=== PATIENT | male | born 1950 | race Caucasian/White ===

== ENCOUNTER 2021-05-01 08:53 | Outpatient (CLI) | payer OTHER, SELFPAY ==
--- NOTE | 2021-05-01 09:15 | USCV_ITS ---
Timi Angel Age: 70 Gender: M : 1950 Exam Date: 05/01/2021 09:30 Ordering Phys: Eunice Valenzuela MD ([email or web address]) Technologist: Madhavi Allen Exam Location: [facility] [place] Indication: Dyspnea BP: 120 / 75 HR: 51 Rhythm: Sinus Technical Quality: Adequate MEASUREMENTS (Male / Female) Normal Values 2D ECHO LV Diastolic Diameter PLAX 4.7 cm 4.2 - 5.9 / 3.9 - 5.3 cm LV Systolic Diameter PLAX 2.8 cm IVS Diastolic Thickness 0.8 cm 0.6 - 1.0 / 0.6 - 0.9 cm IVS Systolic Thickness 1.6 cm LVPW Diastolic Thickness 0.9 cm 0.6 - 1.0 / 0.6 - 0.9 cm LVPW Systolic Thickness 1.4 cm RV Chamber Size 3.0 cm LVOT Diameter 2.0 cm LV Ejection Fraction 2D Teich 72.6 % LV Ejection Fraction MOD 2C 66.4 % LV Ejection Fraction 2C AL 66.4 % LA Diameter 3.1 cm LA Width 2.9 cm LA Height 4.4 cm RA Width 3.4 cm RA Height 4.2 cm Aorta at Sinotubular Diameter 2.3 cm M-MODE Aortic Annulus Diameter 3.6 cm LA Ao Ratio MM 0.8 MV E Point Septal Separation 1.0 cm DOPPLER AV Peak Velocity 103.0 cm/s LVOT Peak Velocity 97.0 cm/s AV Area Cont Eq vti 2.6 cm squared AV Area Cont Eq pk 3.0 cm squared MV Area PHT 3.0 cm squared Mitral E to A Ratio 1.1 MV E' Velocity 35.5 cm/s Mitral E to MV E' Ratio 8.1 Mitral E to LV E' Lateral Ratio 7.1 Mitral E to LV E' Septal Ratio 9.5 TR Peak Velocity 276.0 cm/s TR Peak Gradient 30.5 mmHg TV Peak E Velocity 56.0 cm/s RV Acceleration Time 0.2 s RV Ejection Time 0.4 s RV AcT/ET 0.4 FINDINGS Left Ventricle Normal left ventricular size and systolic function, EF 66 %. No regional wall motion abnormalities. Right Ventricle The right ventricle is normal in size and function. Right Atrium The right atrium is normal in size. Left Atrium The left atrium is normal in size. Mitral Valve No gross abnormalities noted Aortic Valve Appears to be tricuspid with no gross abnormalities Tricuspid Valve No gross abnormalities noted Pulmonic Valve Pulmonic valve not well visualized. Pericardium Normal pericardium without effusion. Aorta Normal ascending aorta dimension. CONCLUSIONS Normal left ventricular size and systolic function, EF 66 %. No regional wall motion abnormalities. The aortic valve appears to be tricuspid with no gross abnormalities Normal cardiac chamber sizes. No significant valvular abnormalities are noted. There is no pericardial effusion. There are no intracardiac masses. No previous study is available for comparison. Dr Eunice Valenzuela MD FACC (Electronically Signed) Final Date: 01 May 2021 19:53 S
== END 2021-05-01 08:54 | disposition home or self-care (01) ==
PROVIDERS: PCP Nurse Practitioner; Visit Provider Internal Medicine Cardiovascular Disease
DX: R06.00 Dyspnea, unspecified (principal); R00.2 Palpitations
CPT/HCPCS: 93306

== ENCOUNTER → 2021-05-31 10:08 | Outpatient (BNVA) | payer OTHER, SELFPAY | PROVIDERS: PCP Nurse Practitioner; Visit Provider Internal Medicine Cardiovascular Disease | DX: I49.3 Ventricular premature depolarization (principal); R53.83 Other fatigue; R55 Syncope and collapse; E78.5 Hyperlipidemia, unspecified; I10 Essential (primary) hypertension; Z87.891 Personal history of nicotine dependence | CPT/HCPCS: 99214 ==

== ENCOUNTER 2021-07-12 08:22 | Outpatient (CLI) | payer OTHER, MEDICARE, SELFPAY ==
[2021-07-12 08:57] VITALS: BMI 27.0
--- NOTE | 2021-07-12 09:04 | ECG_ITS ---
[facility] Test Date: 2021-07-12 Pat Name: Timi Angel Department: Room: Gender: Male Surg Nurse: : 1950 Requested By: Eunice Valenzuela Order Number: [id number] Josias MD: Eunice Valenzuela M.D. Interpretive Statements NAME OF STUDY: EXERCISE SESTAMIBI STRESS TEST INDICATION: Fatigue; Ventricular Arrhythmia PROCEDURE: The baseline electrocardiogram showed normal sinus rhythm with normal ST-Ts right bundle branch block pattern. Frequent PVCs in the form of isolated beats and bigeminy's. At the baseline, the patient's blood pressure was 134/91 mm Hg with a heart rate of 80. The patient exercised for 9 minutes on a standard Segun protocol. Patient attained a maximum heart rate of 137 beats per minute( 91 % of the maximum predicted heart rate) with a blood pressure at the peak exercise of 187/83 mm Hg. The EKG at the peak exercise revealed no significant changes. Patient did not have any chest pain or any significant arrhythmis with the exercise Sestamibi was injected 1 minute prior to the peak exercise During the recovery phase, there were no new changes. Patient was complaining of some shortness of breath with the peak exercise Blood pressure at the end of the recovery phase was 128/88 mm Hg with a heart rate of 89 per minute. CONCLUSION: 1. No significant EKG changes with the [treadmill exercise 2. No exercise-induced chest pain or cardiac arrhythmia 3. Fair exercise tolerance, attained a maximum of 10.2 METs 4. Sestamibi/Sestamibi perfusion results pending; see separate report. Electronically Signed On 07-14-2021 13:20:05 CDT by Eunice Valenzuela M.D. [email or web address]
--- NOTE | 2021-07-12 09:05 | NMCV_ITS ---
NM burton perf SPECT r/s* [id number] Timi Angel Age: 70 Gender: M : 1950 Exam Date: 07/12/2021 09:45 Ordering Phys: Eunice Valenzuela MD ([email or web address]) Technologist: EDIS Whelan Exam Location: [facility] Indications: SHORTNESS OF BREATH, FATIGUE STRESS TEST Please see separate stress test report in [facility] for full findings IMAGE PROTOCOL Rest/Stress 1 Exercise Day Radiopharmaceutical Dose (mCi) Administration Site Administered by Rest: Tc-99m 10.6 IV EDIS Love Sestamibi Stress:Tc-99m 32.8 IV EDIS Whelan Sestamilucius Rest: 12-Jul-2021 60 Discovery 630 Stress: 12-Jul-2021 15 Discovery 630 Radiopharmaceutical was injected at 89 % maximum heart rate. Images obtained in supine and prone position. SPECT RESULTS Technical Quality: Excellent Raw Data Analysis: Normal Image Corrections: No attenuation or motion correction applied Summed Stress Score: 0 Summed Rest Score: 1 Summed Difference Score: 0 PERFUSION FINDINGS A small area of decreased tracer uptake was noted in the mid and apical inferior wall region, with no significant reversibility. FUNCTIONAL RESULTS (calculated via Gated SPECT) Stress Image LV EF (%): 67 Stress EDV (mL):105 TID: 0.82 Stress ESV (mL):35 FUNCTIONAL FINDINGS: Segmental wall motion analysis revealing no gross wall motion abnormalities IMPRESSIONS 1. Myocardial perfusion imaging revealing a small area of persistent decreased tracer uptake in the inferior wall region most likely represent attenuation artifacts. 2. Normal ejection fraction of 67%. 3. LV wall motion analysis revealing no gross wall motion abnormalities. 4. Normal LV volume Low probability for coronary ischemia, based on the above findings Dr Eunice Valenzuela MD FAC (Electronically Signed) Final Date: 12 July 2021 12:58 S
[2021-07-12 10:48] VITALS: BP 145/84; PULSE 83
== END 2021-07-12 08:23 | disposition home or self-care (01) ==
LOC: CDL 08:24
PROVIDERS: PCP Nurse Practitioner; Visit Provider Internal Medicine Cardiovascular Disease
DX: R53.83 Other fatigue (principal); I49.9 Cardiac arrhythmia, unspecified
CPT/HCPCS: 78452; 93017; A9500

== ENCOUNTER → 2021-10-04 10:58 | Outpatient (BNVA) | payer OTHER, SELFPAY | PROVIDERS: PCP Nurse Practitioner; Visit Provider Internal Medicine Cardiovascular Disease | DX: R07.89 Other chest pain (principal); R53.83 Other fatigue; I49.8 Other specified cardiac arrhythmias; E78.5 Hyperlipidemia, unspecified; I10 Essential (primary) hypertension; E04.9 Nontoxic goiter, unspecified; Z87.891 Personal history of nicotine dependence; I45.2 Bifascicular block; I49.3 Ventricular premature depolarization | CPT/HCPCS: 36415; 80053; 84443; 85025; 86141; 99214 ==

== ENCOUNTER → 2022-04-09 09:23 | Outpatient (BNVA) | payer OTHER, SELFPAY | PROVIDERS: PCP Nurse Practitioner; Visit Provider Internal Medicine Cardiovascular Disease | DX: I49.8 Other specified cardiac arrhythmias (principal); E78.5 Hyperlipidemia, unspecified; I10 Essential (primary) hypertension; I49.3 Ventricular premature depolarization; Z87.891 Personal history of nicotine dependence | CPT/HCPCS: 99214 ==

== ENCOUNTER → 2022-09-19 09:25 | Outpatient (BNVA) | payer OTHER, SELFPAY | PROVIDERS: PCP Nurse Practitioner; Visit Provider Internal Medicine Pulmonary Disease | DX: J44.9 Chronic obstructive pulmonary disease, unspecified (principal); G47.33 Obstructive sleep apnea (adult) (pediatric); M25.641 Stiffness of right hand, not elsewhere classified; M25.642 Stiffness of left hand, not elsewhere classified; T78.40XA Allergy, unspecified, initial encounter; X58.XXXA Exposure to other specified factors, initial encounter | CPT/HCPCS: 36415; 85651; 86140; 86160; 86162; 86200; 86235; 86255; 86376; 86431 ==

== ENCOUNTER → 2022-09-19 09:25 | Outpatient (BNVA) | payer OTHER, SELFPAY | PROVIDERS: PCP Nurse Practitioner; Visit Provider Internal Medicine Pulmonary Disease | DX: J44.9 Chronic obstructive pulmonary disease, unspecified (principal); G47.33 Obstructive sleep apnea (adult) (pediatric); M25.641 Stiffness of right hand, not elsewhere classified; M25.642 Stiffness of left hand, not elsewhere classified; Z87.891 Personal history of nicotine dependence | CPT/HCPCS: 99204 ==

== ENCOUNTER 2022-10-04 15:01 | Outpatient (CLI) | payer OTHER, SELFPAY ==
--- NOTE | 2022-10-04 15:30 | CT_ITS ---
WS: [id number] CT chest wo con [id number] HISTORY: Possible foreign body. TECHNIQUE: Axial imaging performed through the thorax. Coronal and sagittal reformats are submitted. All CT scans at [facility] use at least one of these dose optimization techniques: automated exposure control; mA and/or kV adjustment per patient size (includes targeted exams where dose is mat ched to clinical indication); or iterative reconstruction. CONTRAST: None DLP: 334.13 mGy.cm COMPARISON: Chest radiograph 08/22/2022 Lungs and central airway: Well aerated lungs. No mass or nodule. Perifissural nodule along the RIGHT minor fissure measures 6 mm. No evidence for pneumonitis. No bronchial tree foreign body. Pleura: Normal. No pleural effusion. Heart and pericardium: Normal size heart with no pericardial effusion. Mediastinum and frank: No mediastinum or hilar adenopathy. Vessels: Mild atherosclerosis aorta. Normal sized pulmonary artery. Minimal scattered calcifications in the coronary arteries. Chest wall and lower neck: No soft tissue masses. Upper abdomen: Small hiatal hernia. No adrenal mass. Osseous structures: Moderate degenerative disc disease at T6-7. IMPRESSION: 1. No foreign body identified within the lungs or visualized bronchial tree. 2. No adenopathy or pneumonia. 3. Mild atherosclerosis aorta.
== END 2022-10-04 15:02 | disposition home or self-care (01) ==
PROVIDERS: PCP Nurse Practitioner; Visit Provider Internal Medicine Pulmonary Disease
DX: J44.9 Chronic obstructive pulmonary disease, unspecified (principal); Z03.822 Encounter for observation for suspected aspirated (inhaled) foreign body ruled out; I70.0 Atherosclerosis of aorta
CPT/HCPCS: 71250

== ENCOUNTER 2022-10-10 10:46 | Outpatient (CLI) | payer OTHER, SELFPAY | END 2022-10-10 10:47 | disposition home or self-care (01) | PROVIDERS: PCP Nurse Practitioner; Visit Provider Internal Medicine Pulmonary Disease | DX: J44.9 Chronic obstructive pulmonary disease, unspecified (principal) | CPT/HCPCS: 36415; 85651; 86140; 86160; 86162; 86200; 86235; 86255; 86376; 86431; 94010; 94618; 94726; 94729 ==

== ENCOUNTER → 2022-10-24 10:10 | Outpatient (BNVA) | payer OTHER, SELFPAY | PROVIDERS: PCP Nurse Practitioner; Visit Provider Nurse Practitioner Family | DX: L81.4 Other melanin hyperpigmentation (principal); D22.5 Melanocytic nevi of trunk; L85.3 Xerosis cutis; L57.8 Other skin changes due to chronic exposure to nonionizing radiation; L57.0 Actinic keratosis; Z85.828 Personal history of other malignant neoplasm of skin; Z87.891 Personal history of nicotine dependence | CPT/HCPCS: 17000; 99213 ==

== ENCOUNTER → 2022-10-29 10:04 | Outpatient (BNVA) | payer OTHER, SELFPAY | PROVIDERS: PCP Nurse Practitioner; Visit Provider Internal Medicine Cardiovascular Disease | DX: R07.9 Chest pain, unspecified (principal); J44.9 Chronic obstructive pulmonary disease, unspecified; I49.8 Other specified cardiac arrhythmias; E03.9 Hypothyroidism, unspecified; E78.5 Hyperlipidemia, unspecified; I10 Essential (primary) hypertension; Z87.891 Personal history of nicotine dependence | CPT/HCPCS: 99214 ==

== ENCOUNTER → 2022-11-23 10:07 | Outpatient (BNVA) | payer OTHER, SELFPAY | PROVIDERS: PCP Nurse Practitioner; Visit Provider Internal Medicine Pulmonary Disease | DX: J44.9 Chronic obstructive pulmonary disease, unspecified (principal); G47.33 Obstructive sleep apnea (adult) (pediatric); M25.641 Stiffness of right hand, not elsewhere classified; M25.642 Stiffness of left hand, not elsewhere classified; Z99.89 Dependence on other enabling machines and devices; Z87.891 Personal history of nicotine dependence; J45.991 Cough variant asthma | CPT/HCPCS: 99214 ==

== ENCOUNTER → 2023-02-19 12:02 | Outpatient (BNVA) | payer OTHER, SELFPAY | PROVIDERS: PCP Nurse Practitioner; Visit Provider Internal Medicine Rheumatology | DX: Z79.899 Other long term (current) drug therapy (principal); Z11.59 Encounter for screening for other viral diseases; Z11.1 Encounter for screening for respiratory tuberculosis; M19.042 Primary osteoarthritis, left hand; M19.071 Primary osteoarthritis, right ankle and foot | CPT/HCPCS: 20610; 73130; 73630; 80076; 82565; 85025; 86140; 86480; 86704; 86803; 87340; 99204; J1030 ==

== ENCOUNTER 2023-03-22 10:12 | Outpatient (CLI) | payer OTHER, SELFPAY ==
[2023-03-22 10:30] LABS: Basophils # 0.1 10^3/uL (0.0-0.1); Basophils % 0.7 %; Eosinophils # 0.2 10^3/uL (0.0-0.8); Eosinophils % 2.9 %; Hematocrit 45.1 % (37-53); Lymphocytes # 1.4 10^3/uL (0.8-4.8); Lymphocytes % 19.9 %; Mean Corpuscular HGB Conc 32.8 g/dL (30-55); Mean Corpuscular Hemoglobin 29.8 pg (27-33); Mean Corpuscular Volume 90.7 fl (82-101); Mean Platelet Volume 10.6 fL (7.4-10.4); Monocytes # 0.6 10^3/uL (0.2-0.9); Monocytes % 7.8 %; Neutrophils # 4.88 10^3/uL (1.8-7.7); Neutrophils % 67.9 %; Nucleated Red Blood Cells % 0 %; Platelet Count 206 10^3/cmm (157-399); Red Blood Count 4.97 10^6/uL (3.85-5.65); Red Cell Distribution Width 13.7 % (12.1-15.1); White Blood Count 7.19 10^3/uL (3.29-11.43)
[2023-03-22 10:49] LABS: Alanine Aminotransferase 16 U/L (0-41); Albumin Level 4.2 g/dL (3.5-5.2); Alkaline Phosphatase 98 U/L (40-130); Aspartate Amino Transferase 18 U/L (0-40); Globulin 2.7 g/dL (1.3-4.6); Total Bilirubin 0.4 mg/dL (0.15-1.2); Total Protein 6.9 g/dL (6.6-8.7)
== END 2023-03-22 10:13 | disposition home or self-care (01) ==
LOC: LAB 10:13
PROVIDERS: PCP Nurse Practitioner; Visit Provider Internal Medicine Rheumatology
DX: Z79.899 Other long term (current) drug therapy (principal); M19.90 Unspecified osteoarthritis, unspecified site
CPT/HCPCS: 36415; 80076; 82565; 85025; 86140

== ENCOUNTER → 2023-05-21 10:12 | Outpatient (BNVA) | payer OTHER, SELFPAY | PROVIDERS: PCP Nurse Practitioner; Visit Provider Nurse Practitioner Family | DX: I10 Essential (primary) hypertension (principal); Z87.891 Personal history of nicotine dependence | CPT/HCPCS: 99213 ==

== ENCOUNTER → 2023-05-24 08:36 | Outpatient (BNVA) | payer OTHER, SELFPAY | PROVIDERS: PCP Nurse Practitioner; Visit Provider Internal Medicine Pulmonary Disease | DX: G47.33 Obstructive sleep apnea (adult) (pediatric) (principal); J44.9 Chronic obstructive pulmonary disease, unspecified; M25.641 Stiffness of right hand, not elsewhere classified; M25.642 Stiffness of left hand, not elsewhere classified; R09.82 Postnasal drip; Z87.891 Personal history of nicotine dependence | CPT/HCPCS: 99214 ==

== ENCOUNTER → 2023-06-04 10:04 | Outpatient (BNVA) | payer OTHER, SELFPAY | PROVIDERS: PCP Nurse Practitioner; Visit Provider Internal Medicine Rheumatology | DX: Z79.899 Other long term (current) drug therapy (principal); M25.641 Stiffness of right hand, not elsewhere classified; M25.642 Stiffness of left hand, not elsewhere classified; M11.20 Other chondrocalcinosis, unspecified site; M54.31 Sciatica, right side | CPT/HCPCS: 99214 ==

== ENCOUNTER → 2023-10-25 10:09 | Outpatient (BNVA) | payer OTHER, SELFPAY | PROVIDERS: PCP Nurse Practitioner; Visit Provider Nurse Practitioner Family | DX: L57.0 Actinic keratosis (principal); D17.0 Benign lipomatous neoplasm of skin and subcutaneous tissue of head, face and neck; D22.5 Melanocytic nevi of trunk; L81.4 Other melanin hyperpigmentation; L57.8 Other skin changes due to chronic exposure to nonionizing radiation; L85.3 Xerosis cutis; L82.0 Inflamed seborrheic keratosis; Z85.828 Personal history of other malignant neoplasm of skin | CPT/HCPCS: 17000; 17110; 99213 ==

== ENCOUNTER → 2023-11-05 09:21 | Outpatient (BNVA) | payer OTHER, SELFPAY | PROVIDERS: PCP Nurse Practitioner; Referring Provider Nurse Practitioner; Visit Provider Student in an Organized Health Care Education/Training Program | DX: Z12.11 Encounter for screening for malignant neoplasm of colon (principal) | CPT/HCPCS: 99204 ==

== ENCOUNTER → 2024-02-24 09:47 | Outpatient (BNVA) | payer MEDICARE, SELFPAY | PROVIDERS: PCP Nurse Practitioner; Visit Provider Internal Medicine Cardiovascular Disease | DX: I10 Essential (primary) hypertension (principal); R94.39 Abnormal result of other cardiovascular function study; I49.8 Other specified cardiac arrhythmias; E03.9 Hypothyroidism, unspecified; E78.5 Hyperlipidemia, unspecified; J44.89 Other specified chronic obstructive pulmonary disease; Z87.891 Personal history of nicotine dependence | CPT/HCPCS: 99214 ==

== ENCOUNTER 2024-03-30 08:06 | Outpatient (CLI) | payer OTHER, SELFPAY ==
--- NOTE | 2024-03-30 08:13 | FL_ITS ---
WS: [id number] Exam: FL barium swallow [id number] Date/Time of Exam: 03/30/2024 8:43 AM Reason For Exam: DYSPHAGIA Fluoroscopy time: 1min [id number] minutes # of spot films: 4 There is mild posterior extrinsic compression of the cervical esophagus at the C5-6 level which appears to be secondary to anterior osteophyte formation and ligamentous thickening. No intrinsic esophageal mass or stricture was noted. Oral pharyngeal phase of swallowing was normal. The esophagus is otherwise smooth in contour with normal motility. No hiatal hernia or gastroesophageal reflux identified. The esophagus was not displaced. FL/FL barium swallow [id number] IMPRESSION: 1. Mild posterior extrinsic compression of the cervical esophagus at C5-6 which is likely due to anterior osteophyte formation and probable ligamentous thicke cindy. 2. No intrinsic esophageal mass or stricture identified.
== END 2024-03-30 08:07 | disposition home or self-care (01) ==
LOC: RAD 08:06
PROVIDERS: PCP Nurse Practitioner; Visit Provider Otolaryngology
DX: R09.A2 Foreign body sensation, throat (principal); K22.2 Esophageal obstruction; R93.89 Abnormal findings on diagnostic imaging of other specified body structures
CPT/HCPCS: 74220

== ENCOUNTER → 2024-04-06 08:30 | Outpatient (BNVA) | payer OTHER, SELFPAY | PROVIDERS: PCP Nurse Practitioner; Visit Provider Student in an Organized Health Care Education/Training Program | DX: K57.92 Diverticulitis of intestine, part unspecified, without perforation or abscess without bleeding (principal) | CPT/HCPCS: 99204 ==

== ENCOUNTER 2024-04-16 11:59 | Outpatient (CLI) | payer OTHER, SELFPAY ==
--- NOTE | 2024-04-16 12:04 | CT_ITS ---
WS: [id number] CT neck w con* [id number] REASON FOR EXAM: FOREIGN BODY SENSATION IN THROAT IV CONTRAST ADMINISTERED: 100 mL of Omnipaque 350. TOTAL EXAM DLP: 184.[address] scans at [facility] use at least one of these dose optimization techniques: automated exposure control; mA and/or kV adjustment per patient size (includes targeted exams where dose is matched to clinical indication); or iterative reconstruction. FINDINGS: Normal thyroid. Normal parotid glands and submaxillary salivary glands. Normal airway with normal vocal cords. No neck mass or adenopathy. Degenerative spondylosis C5-C7 with anterior osteophyte ptosis and mild ligamentous hypertrophy which would appear to account for the findings on the barium swallow of 03/30/2024. CT/CT neck w con* [id number] IMPRESSION: No neck mass. Findings on the previous barium swallow likely due to degenerative spondylosis in the cervical spine as above.
[2024-04-16 12:47] LABS: Blood Urea Nitrogen 12 mg/dL (8-23)
[2024-04-16] MEDS: iohexol 350 mg/mL 500 mL Btl (per mL) IV (12:52)
== END 2024-04-16 12:00 | disposition home or self-care (01) ==
LOC: RAD 12:00
PROVIDERS: PCP Nurse Practitioner; Visit Provider Otolaryngology
DX: R09.A2 Foreign body sensation, throat (principal); M47.892 Other spondylosis, cervical region; M25.78 Osteophyte, vertebrae; M24.28 Disorder of ligament, vertebrae
CPT/HCPCS: 70491; 82565; 84520

== ENCOUNTER 2024-04-21 09:48 | Day surgery (SDC) | payer OTHER, SELFPAY ==
[2024-04-21 10:14] VITALS: BP 119/87; PULSE 78; RESP 17; TEMP 36.6; O2SAT 97; BMI 27.0
[2024-04-21] MEDS: sodium chloride 0.9% 1,000 ML 30 ML IV (10:28)
--- NOTE | 2024-04-21 10:48 | ANES.PREANE2 ---
Pre-Anesthetic Assessment Height/Weight: Height 1.85 m Weight 92.986 kg Temp Pulse Resp BP Pulse Ox O2 Del Method 97.8 F 78 17 119/87 97 Room Air 04/21/24 10:14 04/21/24 10:14 04/21/24 10:14 04/21/24 10:14 04/21/24 10:14 04/21/24 10:14 Preop Diagnosis: diverticulosis Operation Date: 04/21/24 11:15 Proposed Procedures p Colonoscopy 80697 G0105 K57.92(Not Applicable) - Dominic Morales MD Familial anesthetic complications: none Was Beta Estella taken within 24 hours: N/A Was Clonidine taken within 24 hours: N/A Last intake: Intake Last Liquid Date 04/20/24 Last Liquid Time 20:00 Last Solid Date 04/19/24 Last Solid Time 07:30 Social No alcohol and No tobacco Exam alert, oriented x 3, clear to auscultation bilaterally and regular rate & rhythm Airway Submandibular: within normal limits Cervical ROM: within normal limits Mallampati: Class II Dentition: full History/ROS No significant history except as noted and No significant complaints Pulmonary Sleep Apnea CV/HEM Hypertension BBB None reported Hepatic None reported GI Hiatal Hernia Metabolic Thyroid Disease [facility] None reported Neuropsych Anxiety PTSD Anesthetic Plan ASA status: 3 Anesthesia: MAC Risk of > 500 ml blood loss (7ml/kg in children): No Medications/Allergies Home Medications ?Medication ?Instructions ?Recorded ?Confirmed ?Last Taken ?Type levothyroxine 88 mcg capsule 88 mcg PO QDAY 02/27/19 04/16/24 04/21/24 05:00 History tamsulosin 0.4 mg capsule 0.4 mg PO DAILY 02/27/21 04/16/24 04/16/24 History ascorbate calcium (vitamin C) 500 1 g PO BID 10/04/21 04/16/24 04/14/24 History mg tablet cholecalciferol (vitamin D3) 50 50 mcg PO DAILY 10/04/21 04/16/24 04/14/24 History mcg (2,000 unit) capsule omeprazole 40 mg capsule,delayed 40 mg PO DAILY PRN Heartburn 04/09/22 04/16/24 Unknown History release vit C 250 mg-vit E 90 mg-zinc 40 1 tab PO BID 04/09/22 04/16/24 04/14/24 History mg-copper 1 dy-eqeloi-ezcool capsule (PreserVision AREDS-2) albuterol sulfate 90 mcg/actuation 2 puff inhalation Q6H PRN 09/19/22 04/16/24 04/07/24 Rx aerosol inhaler shortness of breath or wheezing #8.5 grams prednisone 20 mg tablet See Rx Instructions PO .COMPLEX 06/04/23 04/16/24 Unknown Rx PRN joint pain flare #30 tabs azelastine 137 mcg-fluticasone 50 1 spray intranasal BID #23 grams 06/18/23 04/16/24 04/16/24 Rx mcg/spray nasal spray guaifenesin 600 mg tablet, 600 mg PO Q12H PRN congestion #60 06/18/23 04/16/24 Unknown Rx extended release 12 hr (Mucinex) tabs amlodipine 5 mg tablet 5 mg PO DAILY #30 tabs 02/24/24 04/16/24 04/21/24 05:00 Rx sertraline 50 mg tablet 50 mg PO DAILY 02/24/24 04/16/24 04/16/24 History losartan 100 mg tablet 100 mg PO DAILY #90 tabs 03/16/24 04/16/24 04/16/24 Rx montelukast 10 mg tablet 10 mg PO QPM 04/16/24 04/16/24 04/14/24 History Allergies Allergy/AdvReac Type Severity Reaction Status Date / Time Mxpjhdu-SHD-SxN Reductase Allergy Mild leg pain Verified 04/16/24 14:51 Inhibitor (Wkeccmh-Abr-Dbt Reductase Inhibitor) methotrexate Allergy Unknown Unknown Verified 04/16/24 14:51 atenolol Allergy unknown Verified 04/16/24 14:51 atorvastatin Allergy unknown Verified 04/16/24 14:51 buspirone (From BuSpar) Allergy unknown Verified 04/16/24 14:51 fluoxetine Allergy unknown Verified 04/16/24 14:51 pentobarbital Allergy unknown Verified 04/16/24 14:51 ropinirole (From Requip) Allergy unknown Verified 04/16/24 14:51 simvastatin Allergy unknown Verified 04/16/24 14:51 thiopental Allergy unknown Verified 04/16/24 14:51 sodium pen Allergy hives Uncoded 04/16/24 14:51 Current Medications Generic Name Dose Route Start Last Admin Trade Name Freq PRN Reason Stop Dose Admin Sodium Chloride 1,000 mls @ 30 mls/hr 04/21/24 10:15 04/21/24 10:28 Sodium Chloride 0.9% IV 30 mls/hr .Q24H ROGER Administration PFSH Anesthesia Medical History Sciatica of right side Calcium pyrophosphate deposition disease (CPPD) Immunization counseling High risk medication use Greater trochanteric pain syndrome Inflammatory arthritis Major depressive disorder Emphysema lung History of nonmelanoma skin cancer PTSD (post-traumatic stress disorder) Hypothyroid Hypertension Surgical History History of appendectomy History of cataract extraction H/O nasal septoplasty Family History Mother CAD (coronary artery disease) murmur Cancer Father CAD (coronary artery disease) Grandmother Diabetes Family/Other Lung disease Other Rheumatoid arthritis Denies family history of Lupus (systemic lupus erythematosus) Clotting disorder Dementia Chronic kidney disease (CKD) Suicide Anesthesia complication Bleeding disorder Stroke Social History Smoking and tobacco/nicotine status: former use of tobacco/nicotine Quit status (tobacco/nicotine): has quit using Year quit tobacco: 2004 Former quit date comment: 1 ppd X 30 Alcohol intake: current Alcohol intake frequency: holidays/special occasions only Substance/Drug Use: never Data Anesthesia Cardiac Studies: Echocardiogram 05/01/21 Sestamibi Stress Test (Cardiology) 07/12/21 Cardiac Event Monitor 02/28/21
--- NOTE | 2024-04-21 10:56 | W.PM.OPSUD ---
Surgery/Procedure H&P Update DATE OF PROCEDURE: April 21, 2024 DATE H&P PERFORMED: 04/06/24 H&P UPDATE INFORMATION: I have reviewed H&P completed within last 30 days, I have examined patient prior to procedure and No changes to prior documentation CHANGES TO PREVIOUS DOCUMENTATION: Risks and benefits discussed PREOP DIAGNOSIS: diverticulosis PLANNED PROCEDURE: Operation Date: 04/21/24 11:15 Proposed Procedures p Colonoscopy 20687 G0105 K57.92(Not Applicable) - Dominic Morales MD
[2024-04-21 11:36] VITALS: BP 107/62; PULSE 59; RESP 18; TEMP 36.2; O2SAT 92
[2024-04-21 11:43] VITALS: BP 124/82; PULSE 64; RESP 18; TEMP 36.2; O2SAT 95
--- NOTE | 2024-04-21 12:05 | ANE.PACU2 ---
Inpatient post-anesthesia follow up: Airway intact: Yes Vital signs: Temperature 97.1 F Pulse Rate 64 Respiratory Rate 18 Blood Pressure 124/82 Pulse Oximetry 95 Oxygen Delivery Me thod Room Air Oxygen Flow Rate Fraction of Inspir ed Oxygen Hydration adequate: Yes Nausea and vomiting: No Pain level: 1 Mental status: Baseline
== END 2024-04-21 12:08 | disposition home or self-care (01) ==
PROVIDERS: PCP Nurse Practitioner; Visit Provider Student in an Organized Health Care Education/Training Program
PROC: 0DJD8ZZ Inspection of Lower Intestinal Tract, Via Natural or Artificial Opening Endoscopic (ICD-10-PCS; CPT 45378; principal; 2024-04-21 11:15)
DX: K57.30 Diverticulosis of large intestine without perforation or abscess without bleeding (principal); K63.5 Polyp of colon; I10 Essential (primary) hypertension; G47.30 Sleep apnea, unspecified; Z79.899 Other long term (current) drug therapy; Z79.890 Hormone replacement therapy; Z88.8 Allergy status to other drugs, medicaments and biological substances; E03.9 Hypothyroidism, unspecified; Z85.828 Personal history of other malignant neoplasm of skin; Z87.891 Personal history of nicotine dependence
CPT/HCPCS: 45385; 88305; J2704; J7030

== ENCOUNTER → 2024-05-04 14:37 | Outpatient (BNVA) | payer OTHER, SELFPAY | PROVIDERS: PCP Nurse Practitioner; Visit Provider Student in an Organized Health Care Education/Training Program | DX: Z09 Encounter for follow-up examination after completed treatment for conditions other than malignant neoplasm (principal) | CPT/HCPCS: 99213 ==

== ENCOUNTER → 2024-08-21 08:47 | Outpatient (BNVA) | payer OTHER, SELFPAY | PROVIDERS: PCP Nurse Practitioner; Visit Provider Nurse Practitioner Family | DX: I10 Essential (primary) hypertension (principal); I49.8 Other specified cardiac arrhythmias; R07.9 Chest pain, unspecified; E03.9 Hypothyroidism, unspecified; E78.5 Hyperlipidemia, unspecified; J44.89 Other specified chronic obstructive pulmonary disease; Z87.891 Personal history of nicotine dependence | CPT/HCPCS: 99213 ==

== ENCOUNTER → 2024-10-26 10:22 | Outpatient (BNVA) | payer MEDICARE, SELFPAY | PROVIDERS: PCP Nurse Practitioner; Visit Provider Nurse Practitioner Family | DX: D17.0 Benign lipomatous neoplasm of skin and subcutaneous tissue of head, face and neck (principal); L81.4 Other melanin hyperpigmentation; L57.8 Other skin changes due to chronic exposure to nonionizing radiation; Z08 Encounter for follow-up examination after completed treatment for malignant neoplasm; Z85.828 Personal history of other malignant neoplasm of skin; L82.0 Inflamed seborrheic keratosis; L29.89 Other pruritus; L53.8 Other specified erythematous conditions; Z78.9 Other specified health status; R20.8 Other disturbances of skin sensation; L57.0 Actinic keratosis | CPT/HCPCS: 17000; 17110; 99213 ==

== ENCOUNTER → 2024-11-12 12:32 | Outpatient (BNVA) | payer OTHER, SELFPAY | PROVIDERS: PCP Nurse Practitioner; Visit Provider Podiatrist Foot & Ankle Surgery | DX: S93.491A Sprain of other ligament of right ankle, initial encounter (principal); W18.42XA Slipping, tripping and stumbling without falling due to stepping into hole or opening, initial encounter | CPT/HCPCS: 73610; 99203 ==